=== PATIENT | female | born 1960 | race Caucasian/White ===

== ENCOUNTER 2017-05-01 07:49 | Outpatient (CLI) | payer BC | END 2017-05-01 07:50 | disposition home or self-care (01) | LOC: BICMAMMO 07:49 | PROVIDERS: ATTEND Family Medicine | DX: Z12.31 Encounter for screening mammogram for malignant neoplasm of breast (principal) | CPT/HCPCS: 77063; 77067; G0202 ==

== ENCOUNTER 2017-11-06 13:53 | Outpatient (CLI) | payer BC | END 2017-11-06 13:54 | disposition home or self-care (01) | LOC: BICRAD 13:53 | PROVIDERS: ATTEND Family Medicine | DX: M54.2 Cervicalgia (principal); M47.892 Other spondylosis, cervical region | CPT/HCPCS: 72040 ==

== ENCOUNTER 2018-02-02 10:01 | Outpatient (CLI) | payer BC, OTHER ==
[~2018-02-02 10:01] MED LIST: Iopamidol 370 76% 100 ML VIAL ONE
--- NOTE | 2018-02-02 12:16 | CT ---
CT ANGIOGRAM HEAD: HISTORY: Follow up aneurysm. Vision problems. COMPARISON: 01/29/2017 TECHNIQUE: A CT angiogram of the head is performed in the axial plane, and three-dimensional reformatted images are submitted for interpretation. FINDINGS: Noncontrast head CT shows no parenchymal hemorrhage. No extraaxial hematoma. No midline shift. The basilar cisterns are patent. Brain volume is age appropriate. Cortical petit white matter different iation is preserved. The ventricles and sulci are patent and symmetric. Adequate aeration of the sinuses and mastoid air cells. The calvarium is intact. There is preservation of cortical petit white matter differentiation on the post contrast images. There is symmetric enhancement of the luminal diameter of the distal cervical carotid arteries. Ante rior circulation demonstrates symmetric enhancement and luminal diameter of the A1 and M1 segments, a s well as the proximal MCA branches. Symmetric enhancement of luminal diameter with regard to the pr oximal A2 segments. The previously suggested 2 mm outpouching is again noted. Rather than an aneury sm, this may be mild ectasia of the vessel. POSTERIOR CIRCULATION: Both PICA origins are unremarkable. Both vertebral arteries are patent throu ghout their course in the neck. The left vertebral artery is dominant. Both vertebral arteries supp ly a normal appearing basilar artery. Both licensed final expense agents have a origin. IMPRESSION: No definite aneurysm. Stable focal outpouching of contrast, approximately 1 to 2 mm in the proximal right A2 segment. Conventional angiography may be beneficial. POS: [facility]
== END 2018-02-02 10:02 | disposition home or self-care (01) ==
LOC: TBSIIMAG 10:01
PROVIDERS: ATTEND Neurological Surgery
DX: I72.9 Aneurysm of unspecified site (principal)
CPT/HCPCS: 70496

== ENCOUNTER 2018-05-05 09:44 | Outpatient (CLI) | payer BC | END 2018-05-05 09:45 | disposition home or self-care (01) | LOC: BICMAMMO 09:44 | PROVIDERS: ATTEND Family Medicine | DX: Z12.31 Encounter for screening mammogram for malignant neoplasm of breast (principal) | CPT/HCPCS: 77063; 77067 ==

== ENCOUNTER 2019-05-26 07:55 | Outpatient (CLI) | payer BC ==
--- NOTE | 2019-05-26 09:41 | MMO ---
Bilateral MAMMO Bilat Screen [facility]. CLINICAL HISTORY: Patient is 58 years old and is seen for screening. The patient has no family history of breast cancer. The patient has no personal history of cancer. VIEWS: The views performed were: bilateral craniocaudal with tomosynthesis and bilateral mediolateral oblique with tomosynthesis. FILMS COMPARED: The present examination has been compared to prior imaging studies performed at [facility] on 12/15/2014, 04/29/2016, 05/01/2017 and 05/05/2018. This study has been interpreted with the assistance of computer-aided detection. MAMMOGRAM FINDINGS: The breasts are heterogeneously dense, which could obscure a lesion on mammography. There are no suspicious masses, suspicious calcifications, or new areas of architectural distortion. IMPRESSION: THERE IS NO MAMMOGRAPHIC EVIDENCE OF MALIGNANCY. A ROUTINE FOLLOW-UP MAMMOGRAM IN 1 YEAR IS RECOMMENDED. THE RESULTS OF THIS EXAM WERE SENT TO THE PATIENT. ACR BI-RADS Category 1 - Negative MAMMOGRAPHY NOTE: 1. A negative mammogram report should not delay a biopsy if a dominant of clinically suspicious mass is present. 2. Approximately 10% to 15% of breast cancers are not detected by mammography. 3. Adenosis and dense breasts may obscure an underlying neoplasm. Reported by: LAUREN CHARLES MD Electonically Signed: [id number]
--- NOTE | 2019-05-26 09:47 | ULT ---
TRANSABDOMINAL TRANSVAGINAL PELVIC ULTRASOUND DATE:: 05/26/2019 12:00 AM CLINICAL HISTORY: Lower pelvic pain for several months. COMPARISON: None. TECHNIQUE: Grayscale, color Doppler and spectral Doppler images were obtained of the pelvis see a tra nsabdominal transvaginal approach Uterus: Size: 7.8 x 4.1 x 5.5 centimeters Mass: There is a hypoechoic circumferential subendometrial mass involving the lower uterine segment a nd upper cervix measuring approximately 2.9 x 1.9 x 1.9 cm. Cervix: As above Endometrium: As above Endometrial Thickness: 4.2 mm Ovaries: Not seen Cul-de-sac: No free fluid IMPRESSION: Hypoechoic subendometrial mass seen circumferentially involving the lower uterine segment and upper c ervix. Malignancy is a diagnosis of exclusion. Recommend consideration for direct visualization and MRI the pelvis with and without contrast for further characterization.
--- NOTE | 2019-05-26 09:50 | ULT ---
ULTRASOUND ABDOMEN: Date: 05/26/2019 HISTORY: Abdominal pain. FINDINGS: The patient is post cholecystectomy. The liver demonstrates increased echogenicity consistent with fa tty infiltration, without focal mass or intrahepatic ductal dilatation. The spleen is normal, measuri ng 9.0 cm in length. The common duct measures 7.0 mm in diameter. The kidneys and visualized portions of the pancreas, aorta, and IVC are normal. No free fluid is seen. IMPRESSION: 1. Fatty liver. 2. Status post cholecystectomy. POS: [facility]
== END 2019-05-26 07:56 | disposition home or self-care (01) ==
LOC: BICULT 07:55
DX: Z12.31 Encounter for screening mammogram for malignant neoplasm of breast (principal); R10.9 Unspecified abdominal pain; K76.0 Fatty (change of) liver, not elsewhere classified; N85.8 Other specified noninflammatory disorders of uterus; Z90.49 Acquired absence of other specified parts of digestive tract
CPT/HCPCS: 76856; 77063; 77067; 93975

== ENCOUNTER 2020-04-24 18:00 | Outpatient (CLI) | payer BC | END 2020-04-24 18:01 | disposition home or self-care (01) | LOC: SLEEPLAB 18:00 | PROVIDERS: ATTEND Family Medicine | DX: G47.33 Obstructive sleep apnea (adult) (pediatric) (principal); K21.9 Gastro-esophageal reflux disease without esophagitis; I15.9 Secondary hypertension, unspecified; H35.049 Retinal micro-aneurysms, unspecified, unspecified eye | CPT/HCPCS: 95806 ==

== ENCOUNTER 2021-06-14 11:17 | Outpatient (CLI) | payer BC | END 2021-06-14 11:18 | disposition home or self-care (01) | LOC: CT 11:17 | PROVIDERS: ATTEND Neurological Surgery | DX: I67.1 Cerebral aneurysm, nonruptured (principal) | CPT/HCPCS: 70496 ==

== ENCOUNTER 2021-06-18 09:24 | Outpatient (CLI) | payer BC | END 2021-06-18 09:25 | disposition home or self-care (01) | LOC: CTENTCT 09:24 | PROVIDERS: ATTEND Otolaryngology Plastic Surgery within the Head & Neck | DX: J34.2 Deviated nasal septum (principal); J34.89 Other specified disorders of nose and nasal sinuses | CPT/HCPCS: 70486; 87070; 87077 ==

== ENCOUNTER 2021-10-28 10:56 | Outpatient (CLI) | payer BC | END 2021-10-28 10:57 | disposition home or self-care (01) | LOC: BICMAMMO 10:56 | PROVIDERS: ATTEND Family Medicine | DX: Z12.31 Encounter for screening mammogram for malignant neoplasm of breast (principal) | CPT/HCPCS: 77063; 77067 ==

== ENCOUNTER 2024-05-03 10:09 | Outpatient (CLI) | payer OTHER | END 2024-05-03 10:10 | disposition home or self-care (01) | LOC: BICCT 10:09 | PROVIDERS: ATTEND Family Medicine | DX: Z13.6 Encounter for screening for cardiovascular disorders (principal); R07.9 Chest pain, unspecified | CPT/HCPCS: 75571 ==